=== PATIENT | male | born 1935 | race Caucasian/White ===

== ENCOUNTER 2022-09-04 10:45 | Emergency (ER) | payer MEDICARE, OTHER, SELFPAY ==
[2022-09-04 11:08] VITALS: BMI 23.6
--- NOTE | 2022-09-04 11:09 | [facility].EDCPR ---
Discharge Plan Disposition Patient Disposition: Date/Time: 09/04/22 10:52 Clinical Impressions Clinical Impression: Acute myocardial infarction, Cardiac arrest with ventricular fibrillation Discharge ED Provider: Arlen Carlton CPR HPI General Stated Complaint: Cardiac Arrest Time Seen by Provider: 09/04/22 10:45 Mode of Arrival: EMS Limitations: Altered Mental Status History of Present Illness HPI narrative: The patient was brought in by EMS undergoing cardiopulmonary resuscitation. EMS was called approximately 40 minutes prior to arrival at the hospital. The patient was noted to be unresponsive in his vehicle by the neighbors. When EMS arrived to the scene the patient was in ventricular fibrillation. He was defibrillated. After defibrillation he was in asystole. He received ACLS medications and was intubated with a 7.5 mm endotracheal tube. The patient continued to be in asystole throughout the transport to the hospital. Related Data Allergies Allergy/AdvReac Type Severity Reaction Status Date / Time No Known Allergies Allergy Verified 09/04/22 11:08 [facility] Code Documentation Arrest Information Outside of Hospital The Code Document Section documentation for [id number] Jeremy Cummins was populated with data that defaulted in from the cylinder tester in the Code Assessment on f_Reg Service Date] to provide within this report, the status and treatment of the patient in the ED during a Code. This documentation will be supplemented with my direct findings within the body of the report. Treatment Initiated By: EMS Arrest Witnessed: No [facility] Disclaimer: The information contained in this section may have been updated after the patient was seen, as this information can be updated by other users. ROS Obtained: Yes unobtainable due to mental condition and Yes unobtainable due to endotracheal tube Physical Exam General General appearance: other (The patient has a [place] Coma Scale of 3 and is unresponsive) Head Head exam: atraumatic Eye Eye exam: Present other (Pupils are fixed and dilated and the corneas are dry.) ENT ENT exam: Present other (Edentulous. A 7.5 mm endotracheal tube is in place at 24 cm at the lip.) Neck Neck exam: Present trachea midline Chest Chest inspection: Present normal inspection Respiratory Respiratory exam: Present normal lung sounds bilaterally (Breath sounds are normal and audible bilaterally while the patient is being ventilated via the endotracheal tube) Cardiovascular Cardiovascular exam: Present other (No cardiac activity is detectable. The patient is undergoing CPR.) Abdominal Exam Abdominal exam: Present soft; Absent distention or rigidity Extremities Exam Extremities exam: Present normal inspection Neurological Exam Neurological exam: Absent alert ([place] Coma Scale 3) Skin Skin exam: Present dry and intact Medical Decision Making Koko Inquiry Pt receiving controlled substance: No Orders (Tests/Meds): ED MEDICATIONS Discontinued Medications Generic Name Dose Route Start Last Admin Trade Name Shima PRN Reason Stop Dose Admin Epinephrine HCl 1 mg 09/04/22 11:09 09/04/22 10:45 Epinephrine 0.1 Mg/Ml 10ml Syringe (Crash Cart) IV 09/04/22 11:10 1 mg ONCE ONE Administration Sodium Bicarbonate 50 meq 09/04/22 11:09 09/04/22 10:45 Sodium Bicarb 8.4% 50ml Syringe (Crash Cart) IV 09/04/22 11:10 50 meq ONCE ONE Administration Reevaluation(s) Time: 14:00 Reevaluation #1: The corner is at the bedside and has released the body. Medical Decision Narrative: The patient arrived undergoing CPR. He had been down for at least 50 minutes prior to arrival. He was either in ventricular fibrillation (initially) and then asystole. Please refer to the code sheet for further details. The patient was given epinephrine and sodium bicarbonate in the emergency department. He continued to be asystolic. Given the duration of asystole reynold
--- NOTE | 2022-09-04 11:30 | PC.NURSE ---
[facility] called for clearance of body. this nurse spoke with Brooke Mills ([phone]). pt was ruled out for donation by [facility].
--- NOTE | 2022-09-04 11:53 | PC.NURSE ---
pt was found in driveway slumped over steering wheel in his driveway, episode was unwitnessed. pt presents with endotracheal tube present, bilateral breath sounds present. per EMS report last epi was given 1041, pt was delivered 1 shock in ambulance. 1045; pt brought into room via EMS. 1045: pulse check 1047 epi given 1048 bicarb given 1051: pulse check - no pulse present, asystole on monitor. 1052: time of
--- NOTE | 2022-09-04 12:36 | PC.NURSE ---
[employer] in room speaking with family at this time
--- NOTE | 2022-09-04 13:52 | PC.NURSE ---
Home, Sukumar is here speaking with family
== END 2022-09-04 14:18 | disposition expired ==
PROVIDERS: Emergency Provider Emergency Medicine; PCP Family Medicine
DX: I46.9 Cardiac arrest, cause unspecified (principal); I49.01 Ventricular fibrillation; I21.9 Acute myocardial infarction, unspecified
CPT/HCPCS: 92950; 96374; 96375; 99285; 99291